=== PATIENT | male | born 1945 | race Caucasian/White ===

== ENCOUNTER → 2019-09-03 09:49 | Outpatient (CLI) | payer MEDICARE, SELFPAY ==
--- NOTE | ~2019-09-03 | XR_ITS ---
EXAMINATION: XR elbow RT min 3V DATE: 09/03/2019 10:53 INDICATION: Right elbow primary osteoarthritis. TECHNIQUE: 4 views of right elbow were obtained. COMPARISON: None. FINDINGS: Bone alignment is normal. No fracture. There is moderate elbow joint osteoarthritis. There are enthesophytes at medial and lateral humeral epicondyles. There is an elbow joint effusion. IMPRESSION: 1. Moderate elbow joint osteoarthritis. 2. Elbow joint effusion. Reviewed, dictated and finalized at location A. GRINDER
--- NOTE | ~2019-09-03 | XR_ITS ---
EXAMINATION: XR lumbar spine 2-3V EXAM DATE: 09/03/2019 10:53 INDICATION: Spondylosis, myelopathy. TECHNIQUE: Lumber spine frontal, lateral, lateral L5-S1 projections for interpretation. There is no prior study for comparison. FINDINGS: There is 3-4 mm retrolisthesis L2 on L3 and L3 on L4. Moderate disc disease at L1-2 and L2 -3 with large bridging endplate osteophytes. Mild to moderate disc disease at the other lumbar levels . There is moderate upper lumbar, severe lower lumbar facet arthropathy. There is an abdominal aortic aneurysm which has been treated with endograft material. There are no acute fractures identified. IMPRESSION: 1. Moderate to severe lumbar facet arthropathy. 2. Mild to moderate lumbar disc disease. 3. L2-3 and L3-4 grade 1 retrolisthesis. Reviewed, dictated and finalized at location B. CONTROL SPECIALIST
== END ==
PROVIDERS: PCP Family Medicine
DX: M47.817 Spondylosis without myelopathy or radiculopathy, lumbosacral region (principal); M19.021 Primary osteoarthritis, right elbow; M25.421 Effusion, right elbow; M51.36 Other intervertebral disc degeneration, lumbar region
CPT/HCPCS: 72100; 73080

== ENCOUNTER 2020-09-18 12:06 | Emergency (ER) | payer MEDICARE, SELFPAY ==
[2020-09-18] VITALS (19 sets, daily range): BP systolic 100–144; BP diastolic 65–85; PULSE 51–61; RESP 7–20; TEMP 36.2; O2SAT 95–100
--- NOTE | ~2020-09-18 | XR_ITS ---
EXAMINATION: XR knee LT min 4V DATE: 09/18/2020 13:22 INDICATION: Left patellar dislocation. TECHNIQUE: 4 views of left knee were obtained. COMPARISON: None. FINDINGS: Bone alignment is normal. No fracture. There is mild tricompartmental osteoarthritis. There is a small knee joint effusion. There is a punctate loose body in the knee joint. Prepatellar soft t issue swelling is noted. IMPRESSION: 1. Mild left knee osteoarthritis. 2. Small left knee joint effusion with loose body. 3. Prepatellar soft tissue swelling. Reviewed, dictated and finalized at location A. K DRIVING
[2020-09-18] MEDS: ONDANSETRON INJ 4 MG/2 ML VIAL ×2 (12:15→12:35)
--- NOTE | 2020-09-18 12:26 | ECG_ITS ---
Measurements Intervals [place] Rate: 0 P: MO: 0 QRS: QRSD: 0 T: QT: 0 QTc: 0 Interpretive Statements SINUS BRADYCARDIA INCOMPLETE RIGHT BUNDLE BRANCH BLOCK DELAYED PRECORDIAL R/S TRANSITION BASELINE ARTIFACT- II, III, V2-V6 BORDERLINE ECG Electronically Signed On 09-18-2020 12:33:42 IS ANALYST by Ottoniel Gu D.O.
[2020-09-18] MEDS: KETOROLAC 15 MG/ML VIAL (*BKC) IV PUSH (12:30)
[2020-09-18] MEDS: SODIUM CHLORIDE 0.9% IV 1,000 ML 999 ML (12:30)
--- NOTE | 2020-09-18 12:31 | ED.LOWEXIN ---
HPI - Extremity Injury (Lower) General Chief Complaint: Dizziness Stated Complaint: syncopal Time Seen by Provider: 09/18/20 12:08 Source: patient Mode of arrival: wheelchair Limitations: no limitations History of Present Illness HPI Narrative: A 75-year-old man comes into the emergency department today with complaints of a trip and fall. Patient was going into rehab when his foot caught a curb and he went down. Patient complains of exquisite pain in his left knee. He also scraped the knee. Patient denies any loss of consciousness. He does admit to some nausea and due to extreme pain in his knee. He denies any numbness or tingling in the lower extremity. Related Data Allergies Allergy/AdvReac Type Severity Reaction Status Date / Time nitrofurantoin Allergy Intermediate Swelling Verified 09/18/20 12:54 lisinopril Allergy Mild MOUTH Verified 09/18/20 12:54 IRRITATION Review of Systems Review of Systems: Narrative: CONSTITUTIONAL: Denies fever, chills, or sweats. EYES: Denies visual changes, redness, or discharge. ENT: Denies rhinorrhea, congestion, sore throat, or otalgia. CARDIOVASCULAR: Denies chest pain, palpitations, or edema. RESPIRATORY: Denies cough or dyspnea. GASTROINTESTINAL: Denies abdominal pain, nausea, vomiting, or diarrhea. GENITOURINARY: Denies dysuria or hematuria. SKIN: Denies rash or itching. MUSCULOSKELETAL: Denies back pain or myalgia. Deformity and pain of the left knee NEUROLOGIC: Denies headache, numbness, dizziness, or weakness. PSYCHIATRIC: Denies anxiety or depression. [facility] Past Medical History Medical History Adult hypothyroidism Depression Essential (primary) hypertension Hyperlipidemia Surgical History Surgical History History of AAA (abdominal aortic aneurysm) repair History of arthroscopic knee surgery History of carpal tunnel surgery of left wrist History of left cataract surgery History of right cataract surgery History of right hip replacement Family History Family History Other Diabetes mellitus Family history of cardiovascular disease Hypertension Social History Social History (Reviewed 09/18/20 @ 12:39 by KYRA Krishnamurthy Smoking status: Former smoker Smoking end date: 08/07/82 Alcohol intake: current Exam Narrative: Exam Narrative: GENERAL: Well-appearing, well-nourished, and in no acute distress. HEAD: Normocephalic, atraumatic. EYES: PERRLA and EOMI. ENT: Nares clear, no rhinorrhea or epistaxis. Mucous membranes moist. Oropharynx without tonsillar hypertrophy exudate or other lesions. Bilateral TMs pearly trujillo nonbulging NECK: Supple. No adenopathy or masses. No carotid bruits or JVD CHEST: Clear to auscultation. No respiratory distress. No wheezes rales or rhonchi HEART: Regular rate and rhythm. No murmur heard. Normal peripheral pulses. ABDOMEN: Soft, nontender, nondistended, normal active bowel sounds. EXTREMITIES: Normal range of motion. No edema. Abrasion and deformity/swelling of the left knee SKIN: Warm, dry, no rash. NEURO: No focal deficits. Alert and oriented x3. PSYCH: Normal mood and affect. Course Reevaluation(s) Reevaluation #1: Reevaluated patient, he was feeling much better after the pain medicines. Thankfully the x-ray did not show any signs of a fracture or dislocation. He likely has a significant prepatellar bursitis. Patient will be offered knee immobilizer. Time: 14:16 Vital Signs Vital signs: Vital Signs Pulse Rate 59 L 09/18/20 12:13 Respiratory Rate 16 09/18/20 12:13 Pulse Oximetry 95 09/18/20 12:13 Temperature 36.2 C L 09/18/20 12:15 Pulse Rate 60 09/18/20 13:45 Respiratory Rate 19 09/18/20 13:45 Blood Pressure 141/82 H 09/18/20 13:41 Pulse Oximetry 99 09/18/20 14:00 MDM - Extremity Injury (Lower) MDM Narrative Medic
[2020-09-18] MEDS: MORPHINE SULFATE (*CRX) 4 MG/ML INJ 6 MG IV PUSH (12:51)
--- NOTE | 2020-09-18 13:05 | PC.NURSE ---
charge nurse aware of patient and possible dislocation. ice bag to left knee. xray contacted. will come do portable as soon as they can.
--- NOTE | 2020-09-18 13:17 | PC.NURSE ---
patient resting on stretcher. on quality assurance monitor. has call light in reach. cold washcloth to forehead.
--- NOTE | 2020-09-18 13:35 | PC.NURSE ---
patient c/o nausea and dizziness. bed laid back. provider aware. meds given. IVF started. on monitoring coordinator. EKG done and given to provider. will continue to monitor.
--- NOTE | 2020-09-18 14:10 | PC.NURSE ---
provider at bedside. xray results and plan for discharge reviewed with patient. SL removed. monitors removed. dressing to left knee. patient with increased dizziness again when attempting to sit on side of stretcher. pale. diaphoretic. back on stretcher. back on BP and O2 monitors. patient given diet white soda and crackers. call light in reach.
--- NOTE | 2020-09-18 14:46 | PC.NURSE ---
Provided pt with box lunch
--- NOTE | 2020-09-18 15:16 | PC.NURSE ---
patient sitting up in bed eating. has had crackers and diet soda. given OJ and additional food per provider order. will attempt to get patient up and into wheelchair.
== END 2020-09-18 15:51 | disposition home or self-care (01) ==
PROVIDERS: Emergency Provider Emergency Medicine; PCP Internal Medicine
DX: M70.42 Prepatellar bursitis, left knee (principal); S80.212A Abrasion, left knee, initial encounter; R55 Syncope and collapse; E03.9 Hypothyroidism, unspecified; I10 Essential (primary) hypertension; E78.5 Hyperlipidemia, unspecified; Z98.42 Cataract extraction status, left eye; Z98.41 Cataract extraction status, right eye; Z96.641 Presence of right artificial hip joint; Z87.891 Personal history of nicotine dependence; R00.1 Bradycardia, unspecified; I45.10 Unspecified right bundle-branch block; W10.1XXA Fall (on)(from) sidewalk curb, initial encounter; Y93.01 Activity, walking, marching and hiking
CPT/HCPCS: 73564; 93005; 96361; 96374; 96375; 99284; J1885; J2270; J2405; J7030

== ENCOUNTER 2020-09-28 10:35 | Outpatient (CLI) | payer MEDICARE, SELFPAY ==
--- NOTE | ~2020-09-28 | US_ITS ---
EXAMINATION: US venous doppler [facility] EXAM DATE: 09/28/2020 11:49 INDICATION: Left knee pain. Fall. TECHNIQUE: Multiple grayscale, color flow and Doppler images of the left lower extremity deep venous system were obtained and reviewed. There is no prior study for comparison. FINDINGS: The left common femoral, femoral and profunda veins demonstrate normal color flow, respirat ory variation, augmentation and compressibility. Compressibility, color flow confirmed within the le ft popliteal, posterior tibial, peroneal, and greater saphenous veins. Along the left inner thigh there is a focal heterogeneous low echogenicity region measuring 20 cm in length by about 2.5 cm in thickness, without any vascularity demonstrated. This is most likely an int ramuscular hematoma. IMPRESSION: 1. No left lower extremity deep venous thrombosis. 2. Large left thigh intramuscular hematoma. Reviewed, dictated and finalized at location B. LIANCE AIDE
== END 2020-09-28 10:36 | disposition home or self-care (01) ==
PROVIDERS: PCP Internal Medicine; Visit Provider Nurse Practitioner
DX: M79.89 Other specified soft tissue disorders (principal)
CPT/HCPCS: 93971

== ENCOUNTER 2020-10-23 10:45 | Outpatient (CLI) | payer MEDICARE, SELFPAY ==
--- NOTE | ~2020-10-23 | NM_ITS ---
EXAMINATION: NM bone scan whole body DATE: 10/23/2020 14:10 INDICATION: Prostate cancer. TECHNIQUE: 23.8 mCi Tc-99m HDP was administered intravenously. Delayed whole-body scintigrams were o btained. COMPARISON: CT abdomen and pelvis 10/23/2020 FINDINGS: There is a right hip arthroplasty. There is joint-centered increased activity in the should ers, knees, spine, feet, and sternoclavicular joints, likely osteoarthritis. IMPRESSION: 1. No evidence of metastatic disease. Reviewed, dictated and finalized at location A.
--- NOTE | ~2020-10-23 | CT_ITS ---
EXAMINATION: CT abdomen pelvis w con DATE: 10/23/2020 11:28 INDICATION: Prostate cancer. TECHNIQUE: Computed tomography (CT) of the abdomen and pelvis was performed with 100 mL Omnipaque 350 intravenous contrast. Automated exposure control and iterative reconstruction technique were employe d. The dose-length product was 1556.04 mGy-cm. COMPARISON: chest two views 07/25/14 FINDINGS: The visualized portions of the lung bases demonstrate emphysema and mild atelectasis. No pl eural effusion. The heart size is normal. There are coronary artery calcifications. No pericardial ef fusion. The liver, gallbladder, spleen, pancreas, and adrenal glands are normal. There is severe atro phy of right kidney. There are stones in right kidney measuring up to 5 mm. Left kidney is normal. Th ere are no dilated loops of bowel. The appendix is normal. There are no pathologically enlarged lymph nodes. There is no free intraperitoneal fluid. There are bilateral inguinal hernias containing fat. 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 There is posterior displacement of the ante rior proximal aspect of the stent graft that is stable from 07/25/2014. There is a stent in left jermaine l artery origin. 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 There is a total r ight hip arthroplasty. There is severe left hip osteoarthritis. There is severe lumbar spondylosis. IMPRESSION: 1. No evidence of metastatic disease. 2. 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 Reviewed, dictated and finalized at location A.
[2020-10-23 11:12] LABS: Estimated Glomerular Filt Rate 50
== END 2020-10-23 10:46 | disposition home or self-care (01) ==
PROVIDERS: PCP Internal Medicine; Visit Provider Urology
DX: C61 Malignant neoplasm of prostate (principal); I71.4 Abdominal aortic aneurysm, without rupture
CPT/HCPCS: 74177; 78306; A9561; Q9967

== ENCOUNTER 2020-12-29 12:43 | Outpatient (CLI) | payer MEDICARE, SELFPAY ==
--- NOTE | ~2020-12-29 | MR_ITS ---
EXAMINATION: MR pelvis wo/w con DATE: 12/29/2020 14:31 INDICATION: Prostate cancer. TECHNIQUE: Magnetic resonance imaging (MRI) of the pelvis was performed without and with 20 mL MultiH ance intravenous contrast. Sequences included axial and coronal FS FIESTA, coronal T2-weighted FS FSE , axial T2-weighted FSE, axial STIR FSE, coronal and axial LAVA, axial dual-echo T1-weighted FSPGR, a nd axial DWI. Postcontrast sequences included coronal LAVA-flex and a time course of axial LAVA. COMPARISON: CT abdomen and pelvis 10/23/2020 FINDINGS: There is artifact from a stent graft in abdominal aorta and the common iliac arteries and right exter nal iliac artery. There is artifact from a total right hip arthroplasty. The prostate is mildly enlar ged. There is a 2.9 x 1.2 cm fluid collection between the rectum and prostate, likely hematoma. There is prominent fat in the inguinal canals that may be hernias. There are no pathologically enlarged ly mph nodes. There is no free intraperitoneal fluid. IMPRESSION: 1. Mildly enlarged prostate. No evidence of metastatic disease. Reviewed, dictated and finalized at location B.
[2020-12-29 13:34] LABS: Estimated Glomerular Filt Rate 54
== END 2020-12-29 12:44 | disposition home or self-care (01) ==
PROVIDERS: PCP Internal Medicine; Visit Provider Radiology Radiation Oncology
DX: C61 Malignant neoplasm of prostate (principal)
CPT/HCPCS: 72197; A9577

== ENCOUNTER 2022-10-26 14:06 | Observation (INO) | payer MEDICARE, SELFPAY ==
--- NOTE | ~2022-10-26 | MR_ITS ---
MRI of the brain Clinical History: CVA Technique: Axial and sagittal T1-weighted images were acquired. These were followed by axial T2-weigh yang, diffusion weighted, gradient, and FLAIR images. Following intravenous administration of 20 cc Mu ltiHance gadolinium, T1-weighted fat-sat imaging was performed in the axial, sagittal, and coronal pl anes. COMPARISON: 03/28/2017 Findings: There is no acute infarct, intracranial hemorrhage, or mass lesion. Chronic right temporopa rietal infarct is present. There are mild scattered chronic white matter changes in the periventricul ar white matter bilaterally. Ventricles and subarachnoid spaces are dilated. Orbits are unremarkable. Paranasal sinuses and mastoi d air cells are clear. Major intracranial flow voids appear intact. Sagittal midline structures are intact. No abnormal postcontrast enhancement identified. IMPRESSION: No acute abnormality. Chronic right temporoparietal infarct. Mild chronic microvascular ischemic changes and mild generalized atrophy. Reviewed, dictated and finalized at [facility].
--- NOTE | ~2022-10-26 | CT_ITS ---
EXAMINATION: CT brain wo con DATE: 10/26/2022 17:27 INDICATION: AMS . TECHNIQUE: Computed tomography (CT) of the head was performed without intravenous contrast. The mA wa s adjusted according to patient size. Iterative reconstruction technique was employed. The dose-lengt h product was 1059.33 mGy-cm. COMPARISON: MR brain 03/28/2017. FINDINGS: No acute intracranial hemorrhage or extra-axial fluid collection. No hydrocephalus, mass, or herniation. No acute ischemic infarct. Unremarkable dural venous sinus attenuation. No acute osseous abnormality. The aerated spaces are clear. Mild atrophy and chronic white matter change. Chronic right temporoparietal encephalomalacia, likely old infarct. Atherosclerotic intracranial calcification. Bilateral lens replacements. IMPRESSION: No acute intracranial process. Reviewed, dictated and finalized at location K.
--- NOTE | ~2022-10-26 | XR_ITS ---
EXAMINATION: XR chest 1V portable INDICATION: Cough and wheezing TECHNIQUE: Portable AP chest at 1351 hours COMPARISON: 10/26/2022 FINDINGS: Bibasilar airspace opacities persist without significant change. No pleural effusion or pne umothorax. The cardiomediastinal silhouette is normal. IMPRESSION: 1. Stable bibasilar airspace opacities, consistent with atelectasis versus pneumonia. Reviewed, dictated and finalized at location L. IMPRESSION: 1. Stable bibasilar airspace opacities, consistent with atelectasis versus pneu monia.
--- NOTE | ~2022-10-26 | XR_ITS ---
EXAMINATION: XR chest 2V Exam Date/Time: 10/26/2022 15:10 CDT HISTORY: cough, sob, weakness X1wk Comparison: 4 10/04/2016. RESULT: Lines, tubes, and devices: Partially visualized aortic endograft. Lungs and pleura: Streaky subsegmental bibasilar opacities. Cardiomediastinal silhouette: Stable. Other: No acute osseous or upper abdominal finding. IMPRESSION: Bibasilar atelectasis/consolidation. Reviewed, dictated and finalized at location K.
--- NOTE | ~2022-10-26 | US_ITS ---
EXAMINATION: US carotid duplex BI DATE: 10/27/2022 10:20 INDICATION: Altered mental status TECHNIQUE: Grayscale, color Doppler, and pulsed Doppler images of the cervical carotid arteries were obtained. The degree of vessel stenosis is placed in one of the following categories: normal, <50%, 5 0-69%, >=70% but less than near-occlusion, near-occlusion, or total occlusion. Note that percent sten osis relative to normal distal artery lumen diameter is indirectly measured from velocity measurement s as described by Vasile, et al. Radiology 2003; 229:340-346. COMPARISON: None. FINDINGS: RIGHT: The right common carotid artery (CCA) peak systolic velocity (PSV) is 60 cm/s. The right internal car otid artery (ICA) PSV is 44 cm/s. The right ICA end-diastolic velocity (EDV) is 20 cm/s. The right IC A/CCA PSV ratio is 0.7. Grayscale and color Doppler images yield an estimate of <50% diameter reducti on from plaque in the ICA. The external carotid artery (ECA) PSV is 49 cm/s. There is antegrade flow in the right vertebral artery. LEFT: The left CCA PSV is 53 cm/s. The left ICA PSV is 49 cm/s. The left ICA EDV is 15 cm/s. The left ICA/C CA PSV ratio is 0.9. Grayscale and color Doppler images yield an estimate of <50% diameter reduction from plaque in the ICA. The ECA PSV is 34 cm/s. There is antegrade flow in the left vertebral artery. IMPRESSION: 1. <50% stenosis in the right internal carotid artery. 2. <50% stenosis in the left internal carotid artery. Reviewed, dictated and finalized at location A.
[2022-10-26 14:14] VITALS: BP 169/91; PULSE 100; RESP 22; TEMP 35.9; O2SAT 93
--- NOTE | 2022-10-26 14:20 | ECG_ITS ---
Measurements Intervals [place] Rate: 100 P: 70 TN: 234 QRS: -11 QRSD: 97 T: 38 QT: 326 QTc: 422 Interpretive Statements SINUS TACHYCARDIA WITH FIRST DEGREE AV BLOCK INCOMPLETE RIGHT BUNDLE BRANCH BLOCK BASELINE ARTIFACT- I, II, AVR, AVL, AVF BORDERLINE ECG COMPARED TO ECG 09/18/2020 12:33:24 SINUS TACHYCARDIA NOW PRESENT FIRST DEGREE AV BLOCK NOW PRESENT Electronically Signed On 10-26-2022 14:41:07 CDT by Ottoniel Gu D.O.
[2022-10-26 14:41] LABS: Basophils Percent Auto 0.3 % (0.2-1.2); Eosinophils Absolute Auto 0.1 K/mm3 (0-0.3); Eosinophils Percent Auto 1.2 % (0-4.4); Hematocrit 42.7 % (42.0-52.0); Hemoglobin 14.2 g/dL (14.0-18.0); Immature Granulocyte Absolute 0.05 K/mm3 (0.00-0.031); Immature Granulocyte Percent A 0.8 % (0-0.5); Mean Corpuscular HGB Conc 33.3 g/dl (32-36); Mean Corpuscular Volume 96.2 fl (80-100); Mean Platelet Volume 8.1 fl (7.4-10.4); Monocytes Absolute Auto 0.8 K/mm3 (0.1-0.6); Monocytes Percent Auto 11.5 % (2.6-8.5); Neutrophils Absolute Auto 5.1 K/mm3 (1.3-6.7); Neutrophils Percent Auto 77.2 % (45.5-73.1); Platelet Count Result 102 k/mm3 (150-375); Red Blood Count 4.44 M/mm3 (4.6-6.20); Red Cell Distribution Width 13.6 % (11.5-14.5); White Blood Count 6.6 K/mm3 (4.5-10.0)
[2022-10-26 14:55] LABS: Alanine Aminotransferase 32 U/L (6-50); Albumin Level 4.2 g/dL (3.5-5.1); Alkaline Phosphatase 85 U/L (38-126); Anion Gap 6 mmol/L (8-16); Aspartate Amino Transferase 32 U/L (17-59); Bilirubin,Total 0.7 mg/dL (0.2-1.3); Blood Urea Nitrogen 21 mg/dL (9-20); Calcium 8.8 mg/dL (8.4-10.2); Carbon Dioxide 32 mmol/L (22-30); Chloride 98 mmol/L (98-107); Estimated CRCL calculation 71 ml/min; Estimated Glomerular Filt Rate 59; Glucose 120 mg/dL (65-110); Potassium 4.9 mmol/L (3.4-5.0); Sodium 136 mmol/L (137-145)
[2022-10-26 18:52] VITALS: BP 147/86; PULSE 100; O2SAT 91
[2022-10-26 18:55] LABS: Appearance Urine Clear (Clear); Bacteria Urine None Seen /hpf; Bilirubin Urine Negative (Negative); Blood Urine Negative (Negative); Color Urine Yellow (Yellow); Glucose Urine UA Negative (Negative); Ketones Urine Negative (Negative); Leukocyte Esterase Ur Negative LEU/UL (Negative); Nitrate Urine Negative (Negative); Non Pathogenic Casts 0-2; Protein Urine Trace mg/dL (Negative); RBC Urine 0-2 /hpf (0-2); Specific Grav Ur 1.019 (1.001-1.035); Squamous Epithelial Cell Urine None seen /hpf (Few); Urobilinogen Urine 0.2 mg/dL (<2.0); WBC Urine 0-5 /hpf
[2022-10-26 18:59] LABS: Add Urine Microscopic? YES
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
[2022-10-26] MEDS: ALBUTEROL SULFATE NEB 2.5 MG/3 ML INH INHALATION (19:55)
[2022-10-26] MEDS: IPRATROPIUM BR 0.02% INH SOLN 0.5 MG/2.5 ML VIAL INHALATION (19:55)
[2022-10-26 19:56] VITALS: PULSE 116; RESP 20
--- NOTE | 2022-10-26 19:56 | PC.NURSE ---
Patient continues to remove his pulse ox and stickers for residential monitor. Patient educated on keeping equipment on so we can monitor him.
[2022-10-26 20:23] VITALS: PULSE 111; RESP 20
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
--- NOTE | 2022-10-26 20:59 | PC.NURSE ---
gave report to GERMÁN Bear and she states patient cannot go up to the floor until patient's covid test comes back negative. tools and parts attendant made aware. Patient to be transported to the floor when covid result comes back if it is negative
--- NOTE | 2022-10-26 21:40 | PC.NURSE ---
Lab states covid result should be complete in a few minutes.
[2022-10-26 21:41] LABS: Influenza A QL RT-PCR Negative (Negative); Influenza B QL RT-PCR Negative (Negative); SARS-CoV-2 RNA PCR Negative
[2022-10-26] MEDS: MORPHINE SULFATE (*CRX) 4 MG/ML INJ IV PUSH (23:59)
[2022-10-27] VITALS (10 sets, daily range): BP systolic 137–149; BP diastolic 77–80; PULSE 77–111; RESP 14–20; TEMP 36.1–36.6; O2SAT 91–95
[2022-10-27] MEDS: cefTRIAXone 2 GM/NS 100 ML 2 GM/100 ML BAG IVPB ×2 (02:54→20:05)
[2022-10-27] MEDS: ROSUVASTATIN 5 MG TABLET PO ×2 (02:59→20:04)
[2022-10-27] MEDS: traZODone HCL 50 MG TABLET PO ×2 (02:59→20:04)
[2022-10-27] MEDS: LEVOTHYROXINE SODIUM 75 MCG TABLET PO (05:25)
--- NOTE | 2022-10-27 06:00 | ECHO_ITS ---
Patient Info Name: Baudilio Chen Age: 77 years : 1945 Gender: Male Ht: 75 in Wt: 302 lbs BSA: 2.74 m2 HR: 84 bpm BP: 148 / 80 mmHg Technical Quality: Poor Exam Date: 10/27/2022 1:20 PM Exam Location: [facility] Patient Status: Outpatient Admit Date: 10/26/2022 Staff Ordering Physician: Silas Estrella MD Livestock Exhibitor: Ryan Paige, BLAINE, RT Attending Provider: Mynor Conway MD Referring Physician: Sameer CHIN; Exam Type: CA echo dop color flow w con Study Info Indications G45.8 - Other transient cerebral ischemic attacks and related syndromes Complete two-dimensional, color flow and Doppler transthoracic echocardiogram is performed with contrast to opacify the left ventricle and to improve the deliniation of the left ventricle endocardial borders. Summary 1. Technically suboptimal study due to poor sonographic images. 2. Definity contrast administered improved wall motion interpretation. 3. Left ventricular chamber dimension is normal. 4. Left ventricular systolic function is normal, estimated at 60-65%. 5. There is mild concentric increased left ventricular wall thickness. 6. The left ventricular diastolic function is grade I diastolic dysfunction. 7. E/e' 6 is not elevated. 8. Left atrial chamber dimension is mildly enlarged. Left Ventricle E/e' 6 is not elevated. Definity contrast administered improved wall motion interpretation. Technically suboptimal study due to poor sonographic images. Left ventricular chamber dimension is normal. Left ventricular systolic function is normal, estimated at 60-65%. There is mild concentric increased left ventricular wall thickness. The left ventricular diastolic function is grade I diastolic dysfunction. Right Ventricle Right ventricular systolic function is normal based on normal TAPSE 2.0 cm. Right ventricular chamber dimension is not well visualized. Left Atria Left atrial chamber dimension is mildly enlarged. Right Atria Right atrial chamber dimension is not well visualized. Aortic Valve The aortic valve is not well visualized. Cannot determine number of aortic valve leaflets. There is no aortic valve stenosis based on valve area and gradients. There is no aortic valve regurgitation. Pulmonic Valve There is no pulmonic regurgitation. Mitral Valve There is no mitral valve stenosis. There is no mitral valve regurgitation. Tricuspid Valve There is no tricuspid valve regurgitation. Pericardium/Pleural There is no pericardial effusion. Inferior Vena Cava Inferior vena cava is not well visualized. Aorta The aortic root size at the sinus of Valsalva is not well visualized. Left Ventricular Outflow Tract Name Value Normal LVOT 2D LVOT Diameter 2.09 cm LVOT Doppler LVOT Peak Gradient 2 mmHg LVOT Mean Gradient 1 mmHg LVOT VTI 13.64 cm LVOT VTI/AV VTI Ratio 0.88 LVOT Stroke Volume 46.90 ml LVOT CO 3.79 l/min LVOT CI
[2022-10-27 07:38] LABS: Glucose Point of Care 151 mg/dl (65-105)
[2022-10-27] MEDS: ASPIRIN 81 MG ENTERIC TABLET PO (10:18)
[2022-10-27] MEDS: TAMSULOSIN HCL 0.4 MG CAPSULE PO (10:19)
[2022-10-27] MEDS: TELMISARTAN 40 MG TABLET PO (10:19)
[2022-10-27] MEDS: METOPROLOL SUCCINATE EXT REL 50 MG TABCR PO (10:19)
[2022-10-27] MEDS: ATORVASTATIN 10 MG TABLET PO (10:19)
[2022-10-27] MEDS: GABAPENTIN 400 MG CAPSULE PO ×2 (10:19→17:17)
[2022-10-27] MEDS: INSULIN ASPART (*BKC) 100 UNITS/ML 7 UNITS SUB-Q ×3 (10:20→17:17)
[2022-10-27 11:24] LABS: Glucose Point of Care 188 mg/dl (65-105)
--- NOTE | 2022-10-27 12:35 | WPDNEURCNPN ---
Assessment and Plan Assessment and plan (1) Dementia: Code(s): F03.90 - Unspecified dementia, unspecified severity, without behavioral disturbance, psychotic disturbance, mood disturbance, and anxiety Status: Acute (2) Seizure disorder: Code(s): G40.909 - Epilepsy, unspecified, not intractable, without status epilepticus Status: Acute Plan ongoing history of dementia with acute episode of getting lost, in addition to the findings of right temporoparietal infarct on the MRI eeg will be warranted to rule out the possibility of the focal seizures and brain dysfunction further recommendation will be made accordingly in the meantime Doppler study of the carotid has been done will obtain the surface echocardiogram as well Consult date: 10/27/22 HPI: Baudilio Chen is a 77 year old male Admitted to the hospital through the emergency room with dizziness along with cough of several days duration and reportedly feeling like he was going back and forth on the road associated with confusion and as per the son he was supposed to meet him a different place and was reportedly confused and son when arrived where he was supposed to meet patient had driven awake without any specific explanation patient has been on memantine over the last year with no specific diagnosis of dementia patient has been on coenzyme Q10 100 mg daily along with the atorvastatin 10 mg daily and tamsulosin 0.4 mg daily his known to be allergic to nitrofurantoin, lisinopril, and niacin, his past history is consistent with hypothyroidism, hypertension, and depression, pertinent surgeries include abdominal aortic aneurysm repair and bilateral cataract surgery, he has history of years smoked 14 but former smoker and currently alcohol intake initial exam in the Emergency Room documented nonfocal with normal vital signs except the blood pressure of 169/91 routine lab studies normal chest x-ray negative CT scan of the head negative EKG with tachycardia but no atrial fibrillation, Doppler studies of the carotid normal and MRI of the brain with chronic right temporoparietal infarct. [facility] Past Medical History Medical History Adult hypothyroidism Depression Essential (primary) hypertension Hyperlipidemia Surgical History Surgical History History of AAA (abdominal aortic aneurysm) repair History of arthroscopic knee surgery History of carpal tunnel surgery of left wrist History of left cataract surgery History of right cataract surgery History of right hip replacement Family History Family History Other Diabetes mellitus Family history of cardiovascular disease Hypertension Social History Social History Smoking packs per day: 1 Smoking cigarettes per day: 20.0 Years smoked: 14 Smoking pack-years: 14.00 Smoking status: Former smoker Tobacco type: cigarettes Second hand tobacco smoke exposure: Yes Smoking end date: 08/07/82 Alcohol intake: current Alcohol use details: Beer once a month Substance use: never Substance use type: does not use Lack of Transportation: No Lack of Food: Never True Current Housing: I Have Housing Concerned About Future Housing: No Difficulty Paying Gas/Electric Bills: No Difficulty Paying for Meds: No Currently Unemployed: No Education: Associate Degree Difficulty w/ Childcare or Family Care: No Spiritual care concerns: No Meds Home Medications and Allergies Home Medications Medication Instructions Recorded Confirmed Type aspirin 81 mg tablet,delayed 81 mg PO DAILY #90 tabs 08/25/20 10/26/22 Rx release (Adult Aspirin Regimen) gabapentin 400 mg capsule 400 mg PO BID #90 caps 08/25/20 10/26/22 Rx metoprolol tartrate 50 mg tablet 50 mg PO DAILY #90 tabs 08/25/20 10/26/22 Rx telmis
[2022-10-27] MEDS: PERFLUTREN LIPID MICROSPHERES 1.5 ML VIAL DILUTED TO 10 ML TOTAL VOLUME IV PUSH (13:36)
--- NOTE | 2022-10-27 13:36 | IVDEFINITY ---
Prior to administration of IV Definity the patient was educated on the risks and benefits of the imaging enhancing agent including potential adverse side effects. The patient verbalized understanding. Allergies were verified. No exclusion criteria were identified and at least one of the following inclusion criteria were met: 1) physician request, 2) patient technically difficult to image (per the [place] [employer] guidelines of two or more segments not discernable within the apical view), or 3) questionable left ventricular function. ?
--- NOTE | 2022-10-27 13:40 | PM.IMPN ---
Progress Note: A&P Assessment and Plan (1) Altered mental status: Code(s): R41.82 - Altered mental status, unspecified Status: Acute (2) Essential (primary) hypertension: Code(s): I10 - Essential (primary) hypertension Status: Acute (3) Type 2 diabetes mellitus: Code(s): E11.9 - Type 2 diabetes mellitus without complications Status: Acute (4) Obesity (BMI 30-39.9): Code(s): E66.9 - Obesity, unspecified Status: Acute (5) Dementia: Code(s): F03.90 - Unspecified dementia, unspecified severity, without behavioral disturbance, psychotic disturbance, mood disturbance, and anxiety Status: Acute Plan Altered mental status episode of getting lost. CT head is negative except for chronic right temporoparietal infarct. Neurology consulted. MRI negative for acute stroke. Reveals chronic right temporoparietal infarct. Rule out seizure with EEG. Carotid Doppler with no significant stenosis. Echo pending on aspirin and atorvastatin. Check A1c and lipid profile. Is actively wheezy may have underlying COPD and possible hypercapnia. Check ABG. Chest x-ray with bibasilar atelectasis/consolidation. Start on antibiotics for bronchitis/pneumonia. Possible COPD exacerbation with wheezy. Will avoid steroid due to diabetes. Will start bronchodilator Chronic right temporoparietal infarct reveals history of remote TIA in the past without any residual deficit. Hypertension Hyperlipidemia Former smoker Dementia Hypothyroidism Thrombocytopenia continue to monitor. Since chronic Depression Type 2 diabetes mellitus on on glipizide at home. Check A1c. Add on SSI. Family reported patient had blood sugar was 500 which I could not verify anywhere in the chart DVT prophylaxis Lovenox Code status full code Subjective Date/time seen: 10/27/22 13:40 Interval history: Feeling better. His forgetfulness is back to baseline. He reports his blood sugar was as high as 500 yesterday however I do not see that started anywhere. CT and MRI reviewed with the patient. Has some cough since about a week. Review of Systems Review of Systems: All systems reviewed & are unremarkable except as noted in HPI and below Exam Narrative: GENERAL: Well-appearing, well-nourished, and in no acute distress. HEAD: Normocephalic, atraumatic. EYES: PERRL and EOMI. ENT: Mucous membranes moist. CHEST: End-expiratory wheezes noted no respiratory distress. HEART: Regular rate and rhythm. ? Normal peripheral pulses. ABDOMEN: Soft, nontender, nondistended. EXTREMITIES: Normal range of motion.? No edema. SKIN: Warm, dry, no rash. NEURO:? Alert and oriented x3.? No focal neurological deficit PSYCH: Normal mood and affect. Objective Data Vital Signs Vital Signs: Vital Signs - 24 hr 10/26/22 14:14 10/26/22 18:52 10/26/22 19:56 Temperature 96.6 F L Pulse Rate 100 100 116 H Respiratory Rate 22 H 20 Blood Pressure 169/91 H 147/86 H Pulse Oximetry 93 91 Oxygen Delivery Room Air 10/26/22 20:23 10/27/22 01:50 10/27/22 04:00 Temperature Pulse Rate 111 H 111 H 93 Respiratory Rate 20 20 Blood Pressure Pulse Oximetry 91 Oxygen Delivery Room Air 10/27/22 06:00 10/27/22 08:00 10/27/22 08:00 Temperature 97.9 F Pulse Rate 96 96 Respiratory Rate 20 Blood Pressure 148/80 H Pulse Oximetry 95 Oxygen Delivery Room Air Intake/Output Intake/Output: Intake & Output 10/24/22 10/25/22 10/26/22 10/27/22 23:59 23:59 23:59 23:59 Intake Total 240 Output Total 400 Balance -160 Meds/Results Medications: Active Medications Generic Name Dose Route Start Last Admin Trade Name Freq PRN Reason Stop Dose Admin Acetaminophen 650 mg 10/26/22 20:13 Acetaminophen 325 Mg Tablet PO Q4H PRN Mild Pain (1-3) or Fever Hydrocodone Bitart/Acetaminophen 1 tab 10/26/22 20:13 Hydrocodone/Acetaminophen (*Crx) 5-325 Mg Tablet PO Q4H PRN Pain
[2022-10-27] MEDS: IPRATROPIUM BR 0.02% INH SOLN 0.5 MG/2.5 ML VIAL INHALATION (14:25)
[2022-10-27] MEDS: ALBUTEROL SULFATE NEB 2.5 MG/3 ML INH INHALATION (14:25)
[2022-10-27 15:37] LABS: Alveolar/Arterial O2 Gradient 44.4 mmHg; Base Excess ABG 1.6 mEq/l (+/-2.0); Device ROOM AIR; Fractional Inspired Oxygen 21 %; Modified Allen's Test Pass; Oxygen Content ABG 16.8 %vol (16.0-22.0); Oxygen Saturation ABG 90.4 % (95.0-100.0); Oxyhemoglobin 88.7 % THb (90.0-100.0); PCO2 ABG 40.4 mmHg (35.0-45.0); PO2 FiO2 Ratio Arterial Blood 2.71 %; Site Drawn LEFT RADIAL; Total Hemoglobin 13.5 g/dL (12.0-18.0); pH ABG 7.427 (7.350-7.450)
[2022-10-27 16:09] LABS: Cholesterol 89 mg/dL (0-200); HDL Direct 23 mg/dL; Triglycerides 140 mg/dL (<150)
[2022-10-27 16:20] LABS: LDL Cholesterol Direct 36 mg/dL
[2022-10-27 16:27] LABS: Glucose Point of Care 154 mg/dl (65-105)
[2022-10-27] MEDS: MEMANTINE 5 MG TABLET PO (17:17)
[2022-10-27 18:13] LABS: Hemoglobin A1C 8.1 % (<5.7)
[2022-10-27 20:47] LABS: Glucose Point of Care 136 mg/dl (65-105)
[2022-10-28] VITALS (11 sets, daily range): BP systolic 103–133; BP diastolic 66–75; PULSE 62–93; RESP 18–20; TEMP 35.9–37.1; O2SAT 95–97
[2022-10-28] MEDS: ALBUTEROL SULFATE NEB 2.5 MG/3 ML INH INHALATION ×3 (03:04→14:00)
[2022-10-28] MEDS: IPRATROPIUM BR 0.02% INH SOLN 0.5 MG/2.5 ML VIAL INHALATION ×3 (03:04→14:00)
[2022-10-28] MEDS: LEVOTHYROXINE SODIUM 75 MCG TABLET PO (06:29)
[2022-10-28 06:31] LABS: Basophils Percent Auto 0.4 % (0.2-1.2); Eosinophils Absolute Auto 0.1 K/mm3 (0-0.3); Eosinophils Percent Auto 1.8 % (0-4.4); Hematocrit 37.3 % (42.0-52.0); Hemoglobin 12.2 g/dL (14.0-18.0); Immature Granulocyte Absolute 0.02 K/mm3 (0.00-0.031); Immature Granulocyte Percent A 0.4 % (0-0.5); Lymphocytes Absolute Auto 0.71 K/mm3 (0.9-3.2); Lymphocytes Percent Auto 15.7 % (18.3-44.2); Mean Corpuscular HGB Conc 32.7 g/dl (32-36); Mean Corpuscular Hemoglobin 30.8 pg (26-34); Mean Corpuscular Volume 94.2 fl (80-100); Mean Platelet Volume 8.2 fl (7.4-10.4); Monocytes Absolute Auto 0.6 K/mm3 (0.1-0.6); Monocytes Percent Auto 14.1 % (2.6-8.5); Neutrophils Absolute Auto 3.1 K/mm3 (1.3-6.7); Neutrophils Percent Auto 67.6 % (45.5-73.1); Platelet Count Result 107 k/mm3 (150-375); Red Blood Count 3.96 M/mm3 (4.6-6.20); Red Cell Distribution Width 13.4 % (11.5-14.5); White Blood Count 4.5 K/mm3 (4.5-10.0)
[2022-10-28 06:42] LABS: Alanine Aminotransferase 25 U/L (6-50); Albumin Level 3.6 g/dL (3.5-5.1); Alkaline Phosphatase 60 U/L (38-126); Anion Gap 4 mmol/L (8-16); Aspartate Amino Transferase 29 U/L (17-59); Bilirubin,Total 0.6 mg/dL (0.2-1.3); Blood Urea Nitrogen 24 mg/dL (9-20); Calcium 8.3 mg/dL (8.4-10.2); Carbon Dioxide 28 mmol/L (22-30); Chloride 98 mmol/L (98-107); Estimated CRCL calculation 66 ml/min; Estimated Glomerular Filt Rate 54; Glucose 140 mg/dL (65-110); Magnesium 1.9 mg/dL (1.6-2.3); Potassium 4.1 mmol/L (3.4-5.0); Sodium 130 mmol/L (137-145)
[2022-10-28] MEDS: METOPROLOL SUCCINATE EXT REL 50 MG TABCR PO (08:23)
[2022-10-28] MEDS: ASPIRIN 81 MG ENTERIC TABLET PO (08:23)
[2022-10-28] MEDS: TELMISARTAN 40 MG TABLET PO (08:23)
[2022-10-28] MEDS: TAMSULOSIN HCL 0.4 MG CAPSULE PO (08:23)
[2022-10-28] MEDS: GABAPENTIN 400 MG CAPSULE PO (08:23)
[2022-10-28] MEDS: ATORVASTATIN 10 MG TABLET PO (08:23)
[2022-10-28 09:12] LABS: Glucose Point of Care 156 mg/dl (65-105)
[2022-10-28 11:28] LABS: Glucose Point of Care 187 mg/dl (65-105)
--- NOTE | 2022-10-28 13:26 | PM.DS ---
DS: Admitting Diagnosis Discharge Date 10/28/2022 Admitting Diagnosis Confusion DS: Discharge Diagnosis Discharge Diagnosis (1) Altered mental status: Code(s): R41.82 - Altered mental status, unspecified Status: Acute (2) Essential (primary) hypertension: Code(s): I10 - Essential (primary) hypertension Status: Acute (3) Type 2 diabetes mellitus: Code(s): E11.9 - Type 2 diabetes mellitus without complications Status: Acute (4) Obesity (BMI 30-39.9): Code(s): E66.9 - Obesity, unspecified Status: Acute (5) Dementia: Code(s): F03.90 - Unspecified dementia, unspecified severity, without behavioral disturbance, psychotic disturbance, mood disturbance, and anxiety Status: Acute DS: Summary Hospital Course Hospital Course: # altered mental status episode of getting lost.? CT head is negative except for chronic right temporoparietal infarct.? Neurology consulted.? MRI negative for acute stroke.? Reveals chronic right temporoparietal infarct.? Rule out seizure with EEG.? Carotid Doppler with no significant stenosis.? Echo with no PFO or thrombus. Started on aspirin and atorvastatin.? A1c at 8.1 and lipid profile with LDL 36.? He was noted to be actively wheezy may have underlying COPD and possible hypercapnia.? ABG with hypercapnia.? chest x-ray with bibasilar atelectasis/consolidation.? Start on antibiotics for bronchitis/pneumonia. Also bronchodilator with albuterol/ipratropium nebulizers with improvement. Sent on antibiotics along with bronchodilators at discharge avoided steroid due to diabetes. EEG was performed during the hospital stay report pending. This will be followed up by a neurologist as an outpatient basis. Possible COPD exacerbation with wheezy.? Will avoid steroid due to diabetes.? Started on bronchodilator Chronic right temporoparietal infarct reveals history of remote TIA in the past without any residual deficit. Hypertension stable continue on home medication Hyperlipidemia noted to be on atorvastatin Crestor both. Will stop atorvastatin at discharge LDL at 36 Former smoker Dementia on Namenda. Hypothyroidism levothyroxine is continued Thrombocytopenia continue to monitor.? Since chronic Depression Type 2 diabetes mellitus on on glipizide at home.? Add on SSI.? Family reported patient had blood sugar was 500 which I could not verify anywhere in the chart. A1c came back 8.1. Continue Accu-Cheks AC and HS. Discuss diabetes control with primary care at follow-up DVT prophylaxis Lovenox Code status full code Time Spent with Patient Time attestation: Total time spent providing and/or coordinating discharge services: 45 minutes Exam Narrative: GENERAL: Well-appearing, well-nourished, and in no acute distress. HEAD: Normocephalic, atraumatic. EYES: PERRL and EOMI. ENT: Mucous membranes moist. CHEST: End-expiratory wheezes noted no respiratory distress. HEART: Regular rate and rhythm. ? Normal peripheral pulses. ABDOMEN: Soft, nontender, nondistended. EXTREMITIES: Normal range of motion.? No edema. SKIN: Warm, dry, no rash. NEURO:? Alert and oriented x3.? No focal neurological deficit PSYCH: Normal mood and affect. DS: Data Data Completed and Pending Completed studies during hospitalization: Exam Type: ? ? CA echo dop color flow w con Study Info Indications ? ? G45.8 - Other transient cerebral ischemic attacks and related syndromes Complete two-dimensional, color flow and Doppler transthoracic echocardiogram is performed with contrast to opacify the left ventricle and to improve the deliniation of the left ventricle endocardial borders. Account #: ? ? [id number] Summary ? 1. Technically suboptimal study due to poor sonographic images. ? 2. Definity contrast administered improved wall motion interpretation. ? 3. Left ventricular chamber dimension is normal. ? 4. Left ventricular systolic function is normal, estimated at 60-65%. ? 5. There is m
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
== END 2022-10-28 16:45 | disposition home or self-care (01) ==
LOC: ANHED 16:52 → ANH3MEDSUR 21:23
PROVIDERS: General Practice; Admitting Provider Internal Medicine; Emergency Provider Emergency Medicine; PCP Internal Medicine; Visit Provider Internal Medicine
DX: R41.82 Altered mental status, unspecified (principal); I11.9 Hypertensive heart disease without heart failure; E11.9 Type 2 diabetes mellitus without complications; E66.9 Obesity, unspecified; Z68.37 Body mass index [BMI] 37.0-37.9, adult; F03.90 Unspecified dementia, unspecified severity, without behavioral disturbance, psychotic disturbance, mood disturbance, and anxiety; R42 Dizziness and giddiness; R00.0 Tachycardia, unspecified; I44.0 Atrioventricular block, first degree; G45.8 Other transient cerebral ischemic attacks and related syndromes; Z20.822 Contact with and (suspected) exposure to COVID-19; I45.10 Unspecified right bundle-branch block; E03.9 Hypothyroidism, unspecified; E78.5 Hyperlipidemia, unspecified; J98.11 Atelectasis; F32.A Depression, unspecified; F10.90 Alcohol use, unspecified, uncomplicated; Z87.891 Personal history of nicotine dependence; Z82.49 Family history of ischemic heart disease and other diseases of the circulatory system; Z79.82 Long term (current) use of aspirin; Z79.899 Other long term (current) drug therapy
CPT/HCPCS: 36415; 36600; 70450; 70553; 71045; 71046; 80053; 80061; 81001; 82805; 82948; 83036; 83735; 85025; 85055; 87040; 87636; 93005; 93880; 94640; 95816; 96365; 96366; 96367; 96375; 99285; A9270; A9577; C8929; G0378; J0456; J0696; J1815; J2270; Q9957

== ENCOUNTER 2023-03-14 01:00 | Day surgery (SDC) | payer MEDICARE, SELFPAY ==
[2023-03-08 15:10] VITALS: BMI 37.8
[2023-03-14 09:19] VITALS: BP 137/71; PULSE 98; RESP 18; TEMP 35.8; O2SAT 94
--- NOTE | 2023-03-14 09:22 | WPDANESEPPF ---
Anes - Initial Pre Proc Eval Procedure: Operation Date: 03/14/23 10:30 Proposed Procedures p Colonoscopy - Lefty Vigil MD Date/Time: 03/14/23 09:22 Surgeon: Lefty Vigil MD Pre Op Diagnosis: hx colon polyps Patient Data Age: 77 Gender: M Height: 1.91 m Weight: 129.6 kg Last Vital Signs Temp 35.8 C L 03/14/23 09:19 Pulse 98 03/14/23 09:19 Resp 18 03/14/23 09:19 BP 137/71 03/14/23 09:19 Pulse Ox 94 03/14/23 09:19 O2 Del Method Room Air 03/14/23 09:19 Allergies Allergy/AdvReac Type Severity Reaction Status Date / Time nitrofurantoin Allergy Intermediate Swelling Verified 03/14/23 09:17 lisinopril Allergy Mild MOUTH Verified 03/14/23 09:17 IRRITATION niacin Allergy Unknown Unknown Verified 03/14/23 09:17 Home Medications Medication Instructions Recorded Confirmed Type aspirin 81 mg tablet,delayed 81 mg PO DAILY #90 tabs 08/25/20 03/08/23 Rx release (Adult Aspirin Regimen) gabapentin 400 mg capsule 400 mg PO BID #90 caps 08/25/20 03/08/23 Rx metoprolol tartrate 50 mg tablet 50 mg PO DAILY #90 tabs 08/25/20 03/08/23 Rx coenzyme Q10 100 mg capsule 100 mg PO DAILY 09/28/20 03/08/23 History tamsulosin 0.4 mg capsule (Flomax) 0.4 mg PO DAILY 09/29/21 03/08/23 History meclizine 25 mg tablet 25 mg PO DAILY #90 tabs 06/03/22 03/08/23 Rx albuterol sulfate 90 mcg/actuation 2 puff inhalation QID PRN 10/28/22 03/08/23 Rx aerosol inhaler shortness of breath or wheezing #8.5 grams dapagliflozin propanediol 10 mg 10 mg PO DAILY #30 tabs 10/31/22 03/08/23 Rx tablet (Farxiga) levothyroxine 75 mcg capsule 75 mcg PO DAILY #90 caps 11/14/22 03/08/23 Rx pioglitazone 15 mg tablet (Actos) 15 mg PO DAILY #30 tabs 11/14/22 03/08/23 Rx memantine 5 mg tablet 10 mg PO QPM #90 tabs 12/13/22 03/08/23 Rx sodium,potassium,mag sulfates 17.5 See Rx Instructions PO .COMPLEX 02/22/23 03/08/23 Rx gram-3.13 gram-1.6 gram oral soln #354 mL (Suprep Bowel Prep Kit) MegaRed [place]-3 Krill Oil 1 cap PO DAILY 03/08/23 03/08/23 History atorvastatin 40 mg tablet 40 mg PO DAILY 03/08/23 03/08/23 History levetiracetam 500 mg tablet 500 mg PO BID 03/08/23 03/08/23 History omega 9-rnc-mtw-fish oil 1,000 mg 1 cap PO DAILY 03/08/23 03/08/23 History (120 mg-180 mg) capsule (Fish Oil) trazodone 50 mg tablet 50 mg PO HS 03/08/23 03/08/23 History Patient hx anesthesia problems: none Family hx anesthesia problems: none Results Review: All pre-operative results and documents have been reviewed as part of the pre-operative evaluation. [facility] Past Medical History Medical History Adult hypothyroidism CKD stage G3a/A1, GFR 45-59 and albumin creatinine ratio <30 mg/g Dementia Depression Essential (primary) hypertension Hyperlipidemia Prostate cancer Type 2 diabetes mellitus Surgical History Surgical History History of AAA (abdominal aortic aneurysm) repair History of arthroscopic knee surgery History of carpal tunnel surgery of left wrist History of left cataract surgery History of right cataract surgery History of right hip replacement Family History Family History Other Diabetes mellitus Family history of cardiovascular disease Hypertension Social History Social History Smoking packs per day: 0.75 Smoking cigarettes per day: 15.0 Years smoked: 16 Smoking pack-years: 12.00 Smoking status: Former smoker Tobacco type: cigarettes Second hand tobacco smoke exposure: Yes Smoking end date: 08/07/82 Alcohol intake: current Alcohol use details: Beer once a month Substance use: never Substance use type: does not use Lack of Transportation: No Lack of Food: Never True Current Housing: I Have Housing Concerned About Future Housing: No Dif
[2023-03-14] MEDS: LACTATED RINGERS 1,000 ML 150 ML IV CONT (09:32)
[2023-03-14 09:34] LABS: Glucose Point of Care 167 mg/dl (65-105)
--- NOTE | 2023-03-14 09:53 | PM.HPGS ---
History of Present Illness History of Present Illness Consent: Risks, benefits, and alternatives have been discussed and questions answered. Patient agrees to proceed with procedure. Chief complaint: hx colon polyps Narrative: Baudilio Chen is a 77 year old male Presents for screening colonoscopy. Patient's current weight appetite and bowel movements are normal. Patient denies abdominal pain he has had no bleeding. Family history noncontributory. Previous colonoscopy revealed adenomatous colon polyp in 2017. Review of Systems Review of Systems: Review of systems noncontributory. [facility] Past Medical History Medical History Adult hypothyroidism CKD stage G3a/A1, GFR 45-59 and albumin creatinine ratio <30 mg/g Dementia Depression Essential (primary) hypertension Hyperlipidemia Prostate cancer Type 2 diabetes mellitus Surgical History Surgical History History of AAA (abdominal aortic aneurysm) repair History of arthroscopic knee surgery History of carpal tunnel surgery of left wrist History of left cataract surgery History of right cataract surgery History of right hip replacement Family History Family History Other Diabetes mellitus Family history of cardiovascular disease Hypertension Social History Social History Smoking packs per day: 0.75 Smoking cigarettes per day: 15.0 Years smoked: 16 Smoking pack-years: 12.00 Smoking status: Former smoker Tobacco type: cigarettes Second hand tobacco smoke exposure: Yes Smoking end date: 08/07/82 Alcohol intake: current Alcohol use details: Beer once a month Substance use: never Substance use type: does not use Lack of Transportation: No Lack of Food: Never True Current Housing: I Have Housing Concerned About Future Housing: No Difficulty Paying Gas/Electric Bills: No Difficulty Paying for Meds: No Currently Unemployed: No Education: Associate Degree Difficulty w/ Childcare or Family Care: No Living arrangements: alone Spiritual care concerns: No Meds Home Medications and Allergies Home Medications Medication Instructions Recorded Confirmed Type aspirin 81 mg tablet,delayed 81 mg PO DAILY #90 tabs 08/25/20 03/08/23 Rx release (Adult Aspirin Regimen) gabapentin 400 mg capsule 400 mg PO BID #90 caps 08/25/20 03/08/23 Rx metoprolol tartrate 50 mg tablet 50 mg PO DAILY #90 tabs 08/25/20 03/08/23 Rx coenzyme Q10 100 mg capsule 100 mg PO DAILY 09/28/20 03/08/23 History tamsulosin 0.4 mg capsule (Flomax) 0.4 mg PO DAILY 09/29/21 03/08/23 History meclizine 25 mg tablet 25 mg PO DAILY #90 tabs 06/03/22 03/08/23 Rx albuterol sulfate 90 mcg/actuation 2 puff inhalation QID PRN 10/28/22 03/08/23 Rx aerosol inhaler shortness of breath or wheezing #8.5 grams dapagliflozin propanediol 10 mg 10 mg PO DAILY #30 tabs 10/31/22 03/08/23 Rx tablet (Farxiga) levothyroxine 75 mcg capsule 75 mcg PO DAILY #90 caps 11/14/22 03/08/23 Rx pioglitazone 15 mg tablet (Actos) 15 mg PO DAILY #30 tabs 11/14/22 03/08/23 Rx memantine 5 mg tablet 10 mg PO QPM #90 tabs 12/13/22 03/08/23 Rx sodium,potassium,mag sulfates 17.5 See Rx Instructions PO .COMPLEX 02/22/23 03/08/23 Rx gram-3.13 gram-1.6 gram oral soln #354 mL (Suprep Bowel Prep Kit) Mega[employer] [place]-3 Krill Oil 1 cap PO DAILY 03/08/23 03/08/23 History atorvastatin 40 mg tablet 40 mg PO DAILY 03/08/23 03/08/23 History levetiracetam 500 mg tablet 500 mg PO BID 03/08/23 03/08/23 History omega 7-nvc-ppz-fish oil 1,000 mg 1 cap PO DAILY 03/08/23 03/08/23 History (120 mg-180 mg) capsule (Fish Oil) trazodone 50 mg tablet 50 mg PO HS 03/08/23 03/08/23 History Allergies Allergy/AdvReac Type Severity Reaction Status Date / Time nitrofuranto
[2023-03-14 11:01] VITALS: BP 110/70; PULSE 88; RESP 19; O2SAT 94
[2023-03-14 11:11] VITALS: BP 116/74; PULSE 79; RESP 20; O2SAT 98
[2023-03-14 11:21] VITALS: BP 127/82; PULSE 80; RESP 21; O2SAT 97
== END 2023-03-14 11:28 | disposition home or self-care (01) ==
PROVIDERS: Visit Provider Internal Medicine Gastroenterology
PROC: 0DJD8ZZ Inspection of Lower Intestinal Tract, Via Natural or Artificial Opening Endoscopic (ICD-10-PCS; CPT 45378; principal; 2023-03-14 10:30)
DX: Z12.11 Encounter for screening for malignant neoplasm of colon (principal); K64.8 Other hemorrhoids; Z86.010 Personal history of colon polyps; I12.9 Hypertensive chronic kidney disease with stage 1 through stage 4 chronic kidney disease, or unspecified chronic kidney disease; E11.22 Type 2 diabetes mellitus with diabetic chronic kidney disease; N18.31 Chronic kidney disease, stage 3a; E78.5 Hyperlipidemia, unspecified; E03.9 Hypothyroidism, unspecified; F03.90 Unspecified dementia, unspecified severity, without behavioral disturbance, psychotic disturbance, mood disturbance, and anxiety; F32.A Depression, unspecified; Z85.46 Personal history of malignant neoplasm of prostate; Z79.82 Long term (current) use of aspirin; Z79.51 Long term (current) use of inhaled steroids; Z79.84 Long term (current) use of oral hypoglycemic drugs; Z87.891 Personal history of nicotine dependence; E66.9 Obesity, unspecified; Z68.35 Body mass index [BMI] 35.0-35.9, adult
CPT/HCPCS: G0105; 82948; J2704; J7120

== ENCOUNTER 2023-03-26 16:00 | Emergency (ER) | payer MEDICARE, SELFPAY ==
--- NOTE | ~2023-03-26 | CT_ITS ---
EXAMINATION: CT abdomen pelvis wo con DATE: 03/26/2023 17:35 INDICATION: Lower abdominal pain and constipation TECHNIQUE: Computed tomography (CT) of the abdomen and pelvis was performed without intravenous contr ast. The dose-length product (DLP) was 1630.97 mGy-cm. Automated exposure control and iterative recon struction technique were employed. COMPARISON: 10/23/2020 FINDINGS: Minimal dependent atelectasis is present in the lung bases. The heart size is normal. The l iver, spleen, gallbladder, and adrenal glands are normal. There is fatty replacement of much of the p ancreas. There is severe atrophy of the right kidney. There are nonobstructing stones of the right ki dney which measure up to 3 mm. The left kidney is unremarkable. There is a 5.4 cm fusiform aneurysm o f the infrarenal abdominal aorta status post stent graft repair. There is severe lumbar spondylosis. There are changes of total right hip arthroplasty. There is a chronic small fluid collection in the s ubcutaneous tissues lateral to the left hip. IMPRESSION: 1. No CT correlate for the patient's symptoms. Reviewed, dictated and finalized at location F.
[2023-03-26 16:11] VITALS: BP 146/94; PULSE 110; RESP 20; TEMP 36.2; O2SAT 99
--- NOTE | 2023-03-26 16:12 | ED.ABDPAIN ---
HPI - Abdominal Pain General Chief Complaint: Abdominal Pain Stated Complaint: constipated with N/V Time Seen by Provider: 03/26/23 16:12 History of Present Illness HPI narrative: Patient is a 77 year old male with history of prediabetes, AAA with prior repair in 2012, solitary kidney here with abdominal pain. Patient notes that he began Ozempic about 4 weeks ago for weight loss and prediabetes. He has struggled with constipation since starting Ozempic. Last dose was 1 week ago. He notes he has had no bowel movement since Monday. He has tried straining over the last few days and noted some blood on the toilet paper today along with pain at the rectum. He has had some associated nausea and vomiting, vomiting in the ambulance on the way over here. His PCP and the weight loss specialist are both through [facility]. His prior AAA repair was performed at [facility]. No fever or chills, no chest pain or shortness of breath. No known cardiac disease history. Related Data Home Medications Medication Instructions Recorded Confirmed coenzyme Q10 100 mg capsule 100 mg PO DAILY 09/28/20 03/08/23 tamsulosin 0.4 mg capsule (Flomax) 0.4 mg PO DAILY 09/29/21 03/08/23 Mega[employer] [place]-3 Krill Oil 1 cap PO DAILY 03/08/23 03/08/23 atorvastatin 40 mg tablet 40 mg PO DAILY 03/08/23 03/08/23 levetiracetam 500 mg tablet 500 mg PO BID 03/08/23 03/08/23 omega 9-oez-alu-fish oil 1,000 mg 1 cap PO DAILY 03/08/23 03/08/23 (120 mg-180 mg) capsule (Fish Oil) trazodone 50 mg tablet 50 mg PO HS 03/08/23 03/08/23 Allergies Allergy/AdvReac Type Severity Reaction Status Date / Time nitrofurantoin Allergy Intermediate Swelling Verified 03/26/23 16:22 lisinopril Allergy Mild MOUTH Verified 03/26/23 16:22 IRRITATION niacin Allergy Unknown Unknown Verified 03/26/23 16:22 Review of Systems Review of Systems: CONSTITUTIONAL: Denies fever, chills, or sweats. CARDIOVASCULAR: Denies chest pain, palpitations, or edema. RESPIRATORY: Denies cough or dyspnea. GASTROINTESTINAL: Abdominal pain, constipation, nausea, vomiting. GENITOURINARY: Denies dysuria or hematuria. SKIN: Denies rash or itching. MUSCULOSKELETAL: Denies back pain, joint pain, or myalgia. NEUROLOGIC: Denies headache, numbness, or weakness. [facility] Past Medical History Medical History Adult hypothyroidism CKD stage G3a/A1, GFR 45-59 and albumin creatinine ratio <30 mg/g Dementia Depression Essential (primary) hypertension Hyperlipidemia Prostate cancer Type 2 diabetes mellitus Surgical History Surgical History History of AAA (abdominal aortic aneurysm) repair History of arthroscopic knee surgery History of carpal tunnel surgery of left wrist History of left cataract surgery History of right cataract surgery History of right hip replacement Family History Family History Other Diabetes mellitus Family history of cardiovascular disease Hypertension Social History Social History Smoking packs per day: 0.75 Smoking cigarettes per day: 15.0 Years smoked: 16 Smoking pack-years: 12.00 Smoking status: Former smoker Tobacco type: cigarettes Second hand tobacco smoke exposure: Yes Smoking end date: 08/07/82 Alcohol intake: current Alcohol use details: Beer once a month Substance use: never Substance use type: does not use Lack of Transportation: No Lack of Food: Never True Current Housing: I Have Housing Concerned About Future Housing: No Difficulty Paying Gas/Electric Bills: No Difficulty Paying for Meds: No Currently Unemployed: No Education: Associate Degree Difficulty w/ Childcare or Family Care: No Living arrangements: alone Spiritual care concerns: No Exam Narrative: GENERAL: Well-appe
--- NOTE | 2023-03-26 16:21 | ECG_ITS ---
Measurements Intervals [place] Rate: 88 P: 33 WV: 203 QRS: -10 QRSD: 112 T: 11 QT: 375 QTc: 455 Interpretive Statements POOR QUALITY ECG DUE TO BASELINE ARTIFACT SINUS RHYTHM INCOMPLETE RIGHT BUNDLE BRANCH BLOCK BORDERLINE ECG COMPARED TO ECG 10/26/2022 14:24:11 CURRENT TRACING IS OF POOR QUALITY DUE TO BASELINE ARTIFACT Electronically Signed On 03-27-2023 7:27:49 CDT by Abel Garcia M.D.
[2023-03-26 16:34] LABS: Glucose Point of Care 187 mg/dl (65-105)
[2023-03-26 17:01] LABS: Basophils Percent Auto 0.5 % (0.2-1.2); Eosinophils Absolute Auto 0.1 K/mm3 (0-0.3); Eosinophils Percent Auto 1.4 % (0-4.4); Hematocrit 42.1 % (42.0-52.0); Immature Granulocyte Absolute 0.05 K/mm3 (0.00-0.031); Immature Granulocyte Percent A 0.8 % (0-0.5); Lymphocytes Absolute Auto 0.52 K/mm3 (0.9-3.2); Lymphocytes Percent Auto 8.4 % (18.3-44.2); Mean Corpuscular HGB Conc 33.3 g/dl (32-36); Mean Corpuscular Volume 93.1 fl (80-100); Monocytes Absolute Auto 0.5 K/mm3 (0.1-0.6); Monocytes Percent Auto 7.7 % (2.6-8.5); Neutrophils Percent Auto 81.2 % (45.5-73.1); Platelet Count Result 116 k/mm3 (150-375); Red Blood Count 4.52 M/mm3 (4.6-6.20); Red Cell Distribution Width 13.1 % (11.5-14.5); White Blood Count 6.2 K/mm3 (4.5-10.0)
[2023-03-26 17:10] LABS: Lactic Acid Reflex 1.8 mmol/L (0.7-2.0)
[2023-03-26 17:11] LABS: Potassium 4.1 mmol/L (3.4-5.0)
[2023-03-26 17:20] LABS: Alanine Aminotransferase 28 U/L (6-50); Albumin Level 3.9 g/dL (3.5-5.1); Alkaline Phosphatase 68 U/L (38-126); Anion Gap 9 mmol/L (8-16); Aspartate Amino Transferase 30 U/L (17-59); Bilirubin,Total 0.7 mg/dL (0.2-1.3); Blood Urea Nitrogen 27 mg/dL (9-20); Calcium 9.2 mg/dL (8.4-10.2); Carbon Dioxide 25 mmol/L (22-30); Chloride 102 mmol/L (98-107); Estimated Glomerular Filt Rate > 60; Glucose 153 mg/dL (65-110); Lipase 75 U/L (23-300); Sodium 136 mmol/L (137-145)
[2023-03-26 17:22] LABS: Troponin I < 0.012 ng/mL (0.000-0.034)
[2023-03-26] MEDS: SODIUM CHLORIDE 0.9% IV 1,000 ML 999 ML IV CONT (19:04)
[2023-03-26] MEDS: ONDANSETRON INJ 4 MG/2 ML VIAL IV PUSH (19:04)
[2023-03-26] MEDS: PANTOPRAZOLE SODIUM IV 40 MG VIAL IV PUSH (19:04)
[2023-03-26] MEDS: polyethylene glycoL 3350 17 GM POWD.PACK PO (20:18)
== END 2023-03-26 20:19 | disposition home or self-care (01) ==
PROVIDERS: Emergency Provider Student in an Organized Health Care Education/Training Program
DX: K59.00 Constipation, unspecified (principal); E11.22 Type 2 diabetes mellitus with diabetic chronic kidney disease; I12.9 Hypertensive chronic kidney disease with stage 1 through stage 4 chronic kidney disease, or unspecified chronic kidney disease; N18.31 Chronic kidney disease, stage 3a; F03.90 Unspecified dementia, unspecified severity, without behavioral disturbance, psychotic disturbance, mood disturbance, and anxiety; I71.43 Infrarenal abdominal aortic aneurysm, without rupture; E03.9 Hypothyroidism, unspecified; E78.5 Hyperlipidemia, unspecified; Z95.828 Presence of other vascular implants and grafts; Z96.641 Presence of right artificial hip joint; Z85.46 Personal history of malignant neoplasm of prostate; Z87.891 Personal history of nicotine dependence; Z98.41 Cataract extraction status, right eye; Z98.42 Cataract extraction status, left eye; Z79.85 Long-term (current) use of injectable non-insulin antidiabetic drugs; Z79.82 Long term (current) use of aspirin; Z79.84 Long term (current) use of oral hypoglycemic drugs
CPT/HCPCS: 36415; 74176; 80053; 82948; 83605; 83690; 84484; 85025; 93005; 96361; 96374; 96375; 99284; C9113; J2405; J7030

== ENCOUNTER 2023-08-23 15:19 | Outpatient (CLI) | payer MEDICARE, SELFPAY ==
[2023-08-23 16:10] LABS: Hematocrit 37.9 % (42.0-52.0); Hemoglobin 11.7 g/dL (14.0-18.0); Mean Corpuscular HGB Conc 30.9 g/dl (32-36); Mean Corpuscular Hemoglobin 28.4 pg (26-34); Mean Platelet Volume 8.5 fl (7.4-10.4); Platelet Count Result 155 k/mm3 (150-375); Red Blood Count 4.12 M/mm3 (4.6-6.20); Red Cell Distribution Width 14.6 % (11.5-14.5); White Blood Count 7.8 K/mm3 (4.5-10.0)
[2023-08-23 16:23] LABS: INR 1.3
== END 2023-08-23 15:20 | disposition home or self-care (01) ==
LOC: ANHLAB 15:21
PROVIDERS: PCP Family Medicine; Visit Provider Nurse Practitioner
DX: K62.5 Hemorrhage of anus and rectum (principal)
CPT/HCPCS: 36415; 85027; 85610

== ENCOUNTER 2023-09-05 01:24 | Day surgery (SDC) | payer MEDICARE, SELFPAY ==
[2023-08-28 11:26] VITALS: BMI 32.7
--- NOTE | 2023-08-30 13:01 | PC.NURSE ---
Spoke with __PATIENT___ regarding medication _ELIQUIS . Pt. verbalizes understanding that the last dose of ____ELIQUIS is to be taken on __09/02/2023 and the Endoscopist will instruct them when to restart after the procedure.
--- NOTE | 2023-09-05 08:37 | SUR.PREOP ---
Patient called in this morning stating he vomited the mag citrate and didn't start having brown liquid bowel movements until this morning. Discussed with Dr. Gibbs. Dr. Gibbs said he was ok with him coming in this afternoon no new orders received. Information relayed to the patient.
[2023-09-05 12:52] VITALS: BP 111/67; PULSE 103; RESP 18; TEMP 36.1; O2SAT 100
[2023-09-05] MEDS: LACTATED RINGERS 1,000 ML 150 ML IV CONT (13:14)
[2023-09-05 13:15] LABS: Glucose Point of Care 92 mg/dl (65-105)
--- NOTE | 2023-09-05 13:21 | WPDANESEPPF ---
Anes - Initial Pre Proc Eval Procedure: Operation Date: 09/05/23 14:00 Proposed Procedures p Flexible Sigmoidoscopy - Jarrett Cesar MD s [facility] Hemorrhoid Treatment - Jarrett Cesar MD Date/Time: 09/05/23 13:21 Surgeon: Jarrett Cesar MD Pre Op Diagnosis: Melena, other hemorrhoids Patient Data Age: 78 Gender: M Height: 1.91 m Weight: 115 kg Last Vital Signs Temp 97 F L 09/05/23 12:52 Pulse 103 H 09/05/23 12:52 Resp 18 09/05/23 12:52 BP 111/67 09/05/23 12:52 Pulse Ox 100 09/05/23 12:52 O2 Del Method Room Air 09/05/23 12:52 Allergies Allergy/AdvReac Type Severity Reaction Status Date / Time nitrofurantoin Allergy Intermediate Swelling Verified 09/05/23 12:50 lisinopril Allergy Mild MOUTH Verified 09/05/23 12:50 IRRITATION niacin Allergy Unknown Unknown Verified 09/05/23 12:50 Home Medications Medication Instructions Recorded Confirmed Type aspirin 81 mg tablet,delayed 81 mg PO DAILY #90 tabs 08/25/20 08/28/23 Rx release (Adult Aspirin Regimen) gabapentin 400 mg capsule 400 mg PO BID #90 caps 08/25/20 08/28/23 Rx metoprolol tartrate 50 mg tablet 50 mg PO DAILY #90 tabs 08/25/20 08/28/23 Rx coenzyme Q10 100 mg capsule 100 mg PO BID 09/28/20 08/28/23 History meclizine 25 mg tablet 25 mg PO DAILY #90 tabs 06/03/22 08/28/23 Rx dapagliflozin propanediol 10 mg 10 mg PO DAILY #30 tabs 10/31/22 08/28/23 Rx tablet (Farxiga) levothyroxine 75 mcg capsule 75 mcg PO DAILY #90 caps 11/14/22 08/28/23 Rx pioglitazone 15 mg tablet (Actos) 15 mg PO DAILY #30 tabs 11/14/22 08/28/23 Rx MegaRed [place]-3 Krill Oil 1 cap PO BID 03/08/23 08/28/23 History atorvastatin 40 mg tablet 40 mg PO DAILY 03/08/23 08/28/23 History omega 1-lym-bbp-fish oil 1,000 mg 1 cap PO DAILY 03/08/23 08/28/23 History (120 mg-180 mg) capsule (Fish Oil) ondansetron 4 mg disintegrating 4 mg PO Q8H PRN nausea and 03/26/23 08/28/23 Rx tablet vomiting 5 days #10 tabs duloxetine 30 mg capsule,delayed 30 mg PO DAILY 08/09/23 08/28/23 History release semaglutide 2 mg/dose (8 mg/3 mL) 2 mg subcut WEEKLY 08/09/23 09/05/23 History subcutaneous pen injector (Ozempic) apixaban 5 mg tablet (Eliquis) 5 mg PO BID 08/28/23 09/05/23 History hydrocortisone acetate 25 mg 25 mg RECTAL BID 08/28/23 08/28/23 History rectal suppository levetiracetam 500 mg tablet 500 mg PO BID 08/28/23 08/28/23 History (Keppra) memantine 5 mg tablet 5 mg PO QPM 08/28/23 08/28/23 History polyethylene glycol 3350 17 17 g PO DAILY 08/28/23 08/28/23 History gram/dose oral powder (Miralax) Laboratory Tests 09/05/23 13:08 POC Capillary Glucose 92 mg/dl (65-105) Patient hx anesthesia problems: none Family hx anesthesia problems: none Results Review: All pre-operative results and documents have been reviewed as part of the pre-operative evaluation. [facility] Past Medical History Medical History (Updated 08/23/23 @ 15:25 by Anamaria Ramirez, CAMRYN) Adult hypothyroidism CKD stage G3a/A1, GFR 45-59 and albumin creatinine ratio <30 mg/g Dementia Depression Essential (primary) hypertension Hematochezia Hyperlipidemia Internal hemorrhoids senior care current use of anticoagulant Lower GI bleed Prostate cancer Type 2 diabetes mellitus Surgical History Surgical History History of AAA (abdominal aortic aneurysm) repair History of arthroscopic knee surgery History of carpal tunnel surgery of left wrist History of left cataract surgery History of right cataract surgery History of right hip replacement Family History Family History Other Diabetes mellitus Family history of cardiovascular disease Hypertension Social History Social History Smoking packs per day: 0.75 Smoking cigarettes per day: 15.0 Years smoked: 16 Smoking
--- NOTE | 2023-09-05 13:44 | WPDHPUPDATE1 ---
History and Physical Update Update Date/Time: 09/05/23 13:44 History and Physical has been reviewed, including an updated exam of the patient. There are NO changes in the patient's condition. Risks, benefits, and alternatives have been discussed and questions answered. Patient agrees to proceed with procedure.
[2023-09-05 14:16] VITALS: BP 97/64; PULSE 86; RESP 18; O2SAT 100
[2023-09-05 14:26] VITALS: BP 119/75; PULSE 85; RESP 16; O2SAT 96
[2023-09-05 14:36] VITALS: BP 131/86; PULSE 63; RESP 18; O2SAT 100
--- NOTE | 2023-09-05 14:45 | SUR.OPER ---
IRC was no done due the patient having proctitis.
== END 2023-09-05 14:42 | disposition home or self-care (01) ==
PROVIDERS: PCP Family Medicine; Visit Provider Internal Medicine Gastroenterology
PROC: 0DJD8ZZ Inspection of Lower Intestinal Tract, Via Natural or Artificial Opening Endoscopic (ICD-10-PCS; CPT 45330; principal; 2023-09-05 14:00)
DX: K52.9 Noninfective gastroenteritis and colitis, unspecified (principal); K62.7 Radiation proctitis; D12.3 Benign neoplasm of transverse colon; K64.8 Other hemorrhoids; Z85.46 Personal history of malignant neoplasm of prostate; Z92.3 Personal history of irradiation; E03.9 Hypothyroidism, unspecified; I12.9 Hypertensive chronic kidney disease with stage 1 through stage 4 chronic kidney disease, or unspecified chronic kidney disease; E11.22 Type 2 diabetes mellitus with diabetic chronic kidney disease; N18.31 Chronic kidney disease, stage 3a; E78.5 Hyperlipidemia, unspecified; F03.90 Unspecified dementia, unspecified severity, without behavioral disturbance, psychotic disturbance, mood disturbance, and anxiety; Z79.82 Long term (current) use of aspirin; Z79.84 Long term (current) use of oral hypoglycemic drugs; Z79.01 Long term (current) use of anticoagulants; Z79.85 Long-term (current) use of injectable non-insulin antidiabetic drugs; Z87.891 Personal history of nicotine dependence; E66.9 Obesity, unspecified; Z68.31 Body mass index [BMI] 31.0-31.9, adult
CPT/HCPCS: 45338; 45346; 82948; 88305; J2371; J2704; J7120